=== PATIENT | female | born 1940 | race Caucasian/White ===

== ENCOUNTER → 2017-04-24 | Outpatient (CLI) | payer MEDICARE, OTHER ==
--- NOTE | 2017-04-24 11:25 | Diagnostic Imaging Report ---
PROCEDURE:L-SPINE COMPLETE COMPARISON:None. INDICATIONS:BACK PAIN FINDINGS: There are 5 nonrib-bearing lumbar-type vertebral bodies. Moderate levoscoliosis centered at L3. No acute, displaced fracture or subluxation. No pars interarticularis defects on the oblique radiographs. Advanced disc space narrowing with endplate sclerosis and marginal osteophytosis at L2-L3. Remaining intervertebral disc spaces are comparatively well maintained. Mild bilateral facet arthropathy at L5-S1. Sacroiliac joints are intact. CONCLUSION: Moderate levoscoliosis with associated degenerative disc changes at L2-L3. Dictated by: Cesar Perez M.D. on 04/24/2017 at 11:25 Electronically approved by: Cesar Perez M.D. on 04/24/2017 at 11:25
== END ==
LOC: RAD 09:59
PROVIDERS: ATTEND Family Medicine
DX: M54.5 Low back pain (principal)
CPT/HCPCS: 72110